=== PATIENT | female | born 1975 | race Caucasian/White ===

== ENCOUNTER → 2016-07-29 | Outpatient (CLI) | payer OTHER ==
[~2016-07-29] MED LIST: AMOXICILLIN500 M1 PO; AURALGAN EAR DR14 ML AD; BLOOD PRESSURE PO; CLEOCIN HCL300 M1 PO; DICLOXAXILLIN250 MG PO; LANTUS SOLOSTAR3 ML SQ; LEVAMIR SQ; METFORMIN HCL500 M1 PO; METFORMIN PO; NOVOLOG100 U/M2 SQ; PAXIL PO; PRAVASTATIN PO; VALTREX PO
--- NOTE | ~2016-07-29 | MY29 ---
[facility] A Service of [facility] RADIOLOGY TEXT RESULTS PATIENT: MAT SIMEON LOCATION: [facility] : 73 UNIT #: [id number] AGE: [address]: Kori Hutchiosn APRN SEX: F ORDER DR: [id number] [facility] [address] [facility]. [place], [place] [address] [id number] O MR#: [id number] Acc #: [id number] NAME: MAT SIMEON : 1975 SEX: F STUDY DATE/TIME: 07/29/2016 14:58 UNIT: [facility] ROOM: STUDY DESCRIPTION: MY [facility] SCREENING W/ CAD BILAT Attending Physician: Kori Hutchison A.P.R.N. Ordering Physician: Kori Hutchison A.P.R.N. Primary Care Physician: Kori Hutchison A.P.R.N. MEDICAL IMAGING REPORT This report is preliminary unless electronic signature is present EXAM Digital screening mammograms, 07/29/2016 HISTORY 41-year-old woman positive family history, mother and grandmother. Annual screening. COMPARISON Baseline mammogram 11/11/2008. FINDINGS Digital imaging of each breast was completed utilizing screening protocol. Review includes FDA-approved CAD device. Breast parenchyma is fatty replaced bilaterally. I see no interval occurring mass. There are no suspicious microcalcifications and no architectural deformity. IMPRESSION Negative mammogram. Annual screening recommended. Patients over the age of 40 are entered into a reminder system with target due date for the next mammogram. A result letter will also be sent to the patient. BIRADS: 1 Negative Dictated by... Austin Dowell M.D. THIS IS AN ELECTRONICALLY VERIFIED REPORT Austin Dowell M.D. at 07/30/2016 8:10 AM CARL/claude [facility] A Service of [facility] RADIOLOGY TEXT RESULTS PATIENT: MAT SIMEON LOCATION: [facility] : 73 UNIT #: [id number] AGE: [address]: Kori Hutchison APRN SEX: F ORDER DR: TD: 07/29/2016 21:06 JOB #: [id number] MEDICAL IMAGING REPORT Page 1 of 1 COPY
== END | disposition home or self-care (01) ==
LOC: CWCC 14:42
DX: Z12.31 Encounter for screening mammogram for malignant neoplasm of breast (principal); Z80.3 Family history of malignant neoplasm of breast
CPT/HCPCS: G0202